=== PATIENT | female | born 1965 | race Caucasian/White ===

== ENCOUNTER → 2016-11-19 | Outpatient (CLI) | payer OTHER ==
[~2016-11-19] MED LIST: ATARAX50 MG PO; CIPRO500 MG PO; IBU-8800 MG PO; K-DUR 20MEQ20 MEQ PO; LASIX20 MG PO; NKHM; PERCOCET 325 MG1 TA7 PO; PREDNICOT20 MG PO; TAGAMET300 MG PO; XANAX2 MG PO
--- NOTE | ~2016-11-19 | WRIGHTHP ---
[place], [place] PATIENT HISTORY AND PHYSICAL EXAM NAME: GEMINI SALGADO [facility] #: [id number] UNIT #: [id number] ROOM: DOCTOR: HARI PAZ M.D. BIRTHDATE: [birth year] DOS: 11/19/2016 This is a new wound care note. CHIEF COMPLAINT: Chronic ulcer of the right lower extremity. HISTORY OF PRESENT ILLNESS: This is a 51-year-old female who was referred to the Wound Clinic by her PCP for a chronic ulceration of the right lower extremity. She has had this wound present for at least 20 years according to the patient, it does seem at times that it gets smaller. She has been to see a physician out in [place] about this wound at one point several years ago. She has had a wound that was treated on the anterior leg as well with the Unna boot that did improve and respond to treatment. At one point, she said she used Silvadene on it and Silvadene seemed to improve it and get it smaller, but it never did quite heal all the way. She has chronic leg edema and torturous veins according to her up even near the thighs. She has a lot of irritation and pruritus around the wound itself. PAST MEDICAL HISTORY: Significant for anxiety, depression, cataracts, and hypertension. She is not diabetic. PAST SURGICAL HISTORY: She is status post lumpectomy in 1995, which was benign and tonsillectomy. FAMILY HISTORY: Significant for diabetes in her mother, hypertension in her mother, heart disease in her father. SOCIAL HISTORY: She is a current everyday smoker 1 pack per day. She is . She does not use drugs and rarely drinks alcohol. ALLERGIES: No known drug allergies. CURRENT MEDICATIONS: She is on lisinopril, hydrochlorothiazide combination 10/12.5 daily, adult low dose aspirin 81 daily, Seroquel 100 daily, Lexapro 20 daily, Keflex 500 p.o. b.i.d. for 10 days. REVIEW OF SYSTEMS: She does not have any fevers or chills. No nausea or vomiting. She does have some clear drainage coming from the wound. There is a lot of inflammation and the periwound itches a lot. She does feel like she has to scratch it quite a bit. She denies chest pains or shortness of breath or any change in her appetite or weight loss. She does have chronic cough from smoking. PHYSICAL EXAMINATION: VITAL SIGNS: Her vitals are afebrile, pulse is 64, respirations 18, and blood pressure is 110/78. GENERAL: This is a pleasant female who is obese, in no acute distress. NECK: There is no JVD. LUNGS: Clear. CARDIOVASCULAR: S1, S2 regular rate and rhythm. [place], [place] PATIENT HISTORY AND PHYSICAL EXAM NAME: [facility]: [id number] UNIT #: [id number] ROOM: DOCTOR: HARI PAZ M.D. BIRTHDATE: [birth year] ABDOMEN: Obese, soft and nontender. EXTREMITIES: She has edema bilaterally. There is no calf tenderness. Multiple varicosities are noted. She has hemosiderin staining, onychomycosis. Her toes are warm. Her dorsalis pedis pulse is palpable; it is difficult to get a posterior tibial pulse due to the edema. She has a capillary refill less than 3 seconds. The RASHAAD was done on the left leg was 1.43 and on the right was 1.75, but the posterior tibial was noncompressible. She has a wound that is located above the medial malleolus that is measuring 2.4 x 3.5 x 0.2 in depth. There is really no necrotic tissue present. There is periwound erythema and inflammation around it. I would say about 1 inch around the entire wound. There is no active cellulitis that I could see. We discussed with the patient about debridement and doing a biopsy as the wound has been present for so long. She did agree to it. The 1 o'clock area of the wound was infiltrated with 2 mL of 1% lidocaine and a punch biopsy was obtained of the area. There was moderate amount of bleeding that was controlled with pressure, and after that the wound was debrided selectively to remove fibrin and slough and there was no bleeding, there was a post-debridement culture obtained as well. The post-debridement measurements are as follows 2.5 x 4 x 0.3 in depth. Instruments used were punch biopsy forceps and scissors. Cetacaine spray was also used for topical anesthesia to the base of the wound. ASSESSMENT AND PLAN: Likely a venous leg ulcer, which has been chronic and nonhealing for several years now. She had a similar wound that responded to compression therapy in the past. Her RASHAAD was difficult to obtain of the right side noncompressible, so we will go ahead and send her for arterial Dopplers, once it is scheduled we will also get venous Dopplers as well. Punch biopsy was obtained today. We will use Aquacel silver to the base of the wound and 4 x 4s and Kerlix and have her use Tubigrip for compression for now and follow up early next week and hopefully will be able to use compression on her in the near future. I will go through her blood work to see if she has had any recent labs. She says she is not diabetic. If she has not had lab work done, we will consider getting that next time she is here. She also has some dermatitis around the wound, so triamcinolone cream was prescribed and a culture was also obtained today. Follow up early next week. [place], [place] PATIENT HISTORY AND PHYSICAL EXAM NAME: [facility] [id number] UNIT #: [id number] ROOM: DOCTOR: HARI PAZ M.D. BIRTHDATE: [birth year] HARI PAZ MD CM:HISPHYS:PATIENT HISTORY AND PHYSICAL EXAMINATION [id number] HARI PAZ M.D. 11/19/16 1208 interface
== END ==
LOC: WOUNDCARE 02:42
DX: I87.2 Venous insufficiency (chronic) (peripheral) (principal); L97.812 Non-pressure chronic ulcer of other part of right lower leg with fat layer exposed; F41.9 Anxiety disorder, unspecified; F32.9 Major depressive disorder, single episode, unspecified; I10 Essential (primary) hypertension; B35.1 Tinea unguium; F17.210 Nicotine dependence, cigarettes, uncomplicated

== ENCOUNTER → 2016-12-03 | Outpatient (CLI) | payer OTHER | END | disposition home or self-care (01) | LOC: US 11-24 14:00 | DX: S81.001A Unspecified open wound, right knee, initial encounter (principal); L97.912 Non-pressure chronic ulcer of unspecified part of right lower leg with fat layer exposed; I87.2 Venous insufficiency (chronic) (peripheral); I10 Essential (primary) hypertension; M71.22 Synovial cyst of popliteal space [Baker], left knee; M71.21 Synovial cyst of popliteal space [Baker], right knee; X58.XXXA Exposure to other specified factors, initial encounter; Y93.89 Activity, other specified; Y92.89 Other specified places as the place of occurrence of the external cause; Y99.8 Other external cause status ==

== ENCOUNTER → 2016-12-09 | Outpatient (CLI) | payer OTHER ==
--- NOTE | ~2016-12-09 | PR ---
[place], [place] PROGRESS NOTE NAME: GEMINI SALGADO UNIT #: [id number] ROOM: DOCTOR: HARI PAZ M.D. BIRTHDATE: [birth year] DOS: 12/09/2016 The patient comes in for her routine followup wound care visit. CHIEF COMPLAINT: Chronic leg ulcer. HISTORY OF PRESENT ILLNESS: The location is the right lower extremity. The duration has been present for years according to the patient, it is associated with venous stasis disease and edema. She is not diabetic. Last week, she had her venous and arterial Dopplers done. The reports are good. There was no acute DVT and she has good arterial flow with no significant peripheral vascular disease. She offers no specific complaints. She says there is still a fair amount of drainage with the wound and at times, feels a little bit itchy, but there are no fevers, chills, or pain. OBJECTIVE: VITAL SIGNS: Stable. Temperature is 98.1, pulse of 84, respirations 18, blood pressure is 124/80. EXTREMITIES: The wound is measuring 1.9 x 2.2 x 0.2. There is minimal fibrin, slough present in the base of the wound. There is minimal amount of maceration noted a little bit on just the edges. There seems to have been a fair amount of epithelialization since when she first came. The periwound has no active cellulitis present. A debridement was done. The tissue removed was fibrin, slough, and subcutaneous tissue. There was minimal amount of bleeding that was controlled with pressure. A curette was used. Cetacaine spray was used for topical anesthesia. Timeout was conducted prior to the start of the procedure. The patient tolerated the procedure well. ASSESSMENT AND PLAN: Venous stasis ulceration, full thickness. We will use a compression therapy Unna boot for now and have her come back in 2 days for nursing visit to change the dressing and see how she does with the boot. In the meantime, we will continue with Aquacel silver and for now. Follow up in Wound Clinic in one week. [place], [place] PROGRESS NOTE NAME: GEMINI SALGADO UNIT #: [id number] ROOM: DOCTOR: HARI PAZ M.D. BIRTHDATE: [birth year] HARI PAZ MD CM:GUY [phone] HARI PAZ M.D. 12/10/16 0210 interface
== END ==
LOC: WOUNDCARE 03:00
DX: I87.2 Venous insufficiency (chronic) (peripheral) (principal); L97.812 Non-pressure chronic ulcer of other part of right lower leg with fat layer exposed

== ENCOUNTER → 2016-12-11 | Outpatient (CLI) | payer OTHER | LOC: WOUNDCARE 02:59 | DX: I87.2 Venous insufficiency (chronic) (peripheral) (principal); L97.812 Non-pressure chronic ulcer of other part of right lower leg with fat layer exposed ==

== ENCOUNTER → 2016-12-16 | Outpatient (CLI) | payer OTHER ==
--- NOTE | ~2016-12-16 | PR ---
[place], [place] PROGRESS NOTE NAME: [facility] [id number] UNIT #: [id number] ROOM: DOCTOR: HARI PAZ M.D. BIRTHDATE: [birth year] DOS: 12/16/2016 This is a wound care followup note. CHIEF COMPLAINT: Chronic leg ulcer. HISTORY OF PRESENT ILLNESS: The location of the wound is the right lower extremity, medial aspect, medial tibial area. It is associated with venous stasis disease and edema. She is not diabetic. She has been on compression therapy, tolerating her Unna boot without any particular complaints. No fevers or chills. No pain. PHYSICAL EXAMINATION: VITAL SIGNS: She is afebrile, pulse is 82, respirations 18, blood pressure is 122/80. WOUND EXAMINATION: The wound is measuring 1 cm x 1.3 x 0.3 in depth at the deepest depth. It definitely seems improved. There is minimal fibrin and slough present in the base of the wound and some dried hyperkeratosis around the periwound area. Tissue removed was fibrin, slough and subcutaneous tissue. There was minimal bleeding that was controlled with pressure. Post-debridement measurements are unchanged. A curette was used as well as forceps and scissors. ASSESSMENT AND PLAN: Venous stasis ulceration, full thickness. We will continue with Aquacel Ag and compression therapy and have her follow back up in 1 week. HARI PAZ MD CM:PNTRANS [phone] HARI PAZ M.D. 12/17/16 0349 interface
== END ==
LOC: WOUNDCARE 01:16
DX: I87.2 Venous insufficiency (chronic) (peripheral) (principal); L97.812 Non-pressure chronic ulcer of other part of right lower leg with fat layer exposed

== ENCOUNTER → 2016-12-23 | Outpatient (CLI) | payer OTHER ==
--- NOTE | ~2016-12-23 | PR ---
[place], [place] PROGRESS NOTE NAME: GEMINI SALGADO [facility] #: [id number] UNIT #: [id number] ROOM: DOCTOR: JACKSON Huntley,HARI BIRTHDATE: [birth year] DOS: 12/23/2016 CHIEF COMPLAINT: Chronic ulcer of the leg. HISTORY OF PRESENT ILLNESS: The location of the wound is the right lower extremity medial tibial area. It is associated with venous stasis disease. It is chronic for years and 20 years according to the patient and chronic edema. She is not diabetic. She has been tolerating the compression therapy for several weeks now without any particular issues previously. Today, she comes in and reports that the Unna boot did slide down, and felt like it was not as tight as it had been before, and she had to take it off on Wednesday. She has not had compression for several days. Otherwise, no pain. She does complain of a lot of pruritus within the wound bed. No fevers or chills are noted. She thinks the wound is looking improved as well. Overall, it does still drain some and sometimes the dressing gets stuck in the base of the wound. OBJECTIVE: VITAL SIGNS: Stable. Temperature is 98.4, pulse is 60, respirations 18, blood pressure is 102/60. WOUND EXAM: The wound looks good, it looks fairly clean. It is measuring 1.1 x 2 x 0.2 in depth. There is definitely some epithelialization even from the last picture that is recorded in the computer. A debridement was done today. The tissue removed was nonviable fibrin and slough only biofilm. There was minimal bleeding. Post-debridement measurements are unchanged. The patient tolerated the debridement well. A curette was utilized. Cetacaine spray was used for topical anesthesia. ASSESSMENT AND PLAN: Chronic venous stasis ulcer full thickness. We will continue with compression therapy. We will continue with the Unna boot and hopefully they will stay on for the week and go to a collagen dressing for now. Follow up Wound Care in one week. HARI PAZ MD CM:GUY [phone] HARI PAZ M.D. 12/24/16 0450 interface
== END ==
LOC: WOUNDCARE 01:11
DX: I87.2 Venous insufficiency (chronic) (peripheral) (principal); L97.812 Non-pressure chronic ulcer of other part of right lower leg with fat layer exposed

== ENCOUNTER → 2017-01-01 | Outpatient (CLI) | payer OTHER ==
--- NOTE | ~2017-01-01 | PR ---
[place], [place] PROGRESS NOTE NAME: GEMINI GONGORA [facility] #: [id number] UNIT #: [id number] ROOM: DOCTOR: JACKSON HuntleyHARI BIRTHDATE: [birth year] DOS: 01/01/2017 WOUND CARE PROGRESS NOTE Ms. Gongora has been coming to the clinic now for 6 weeks with a venous ulceration that is full thickness on her right lower extremity. She has been tolerating compression therapy. She did miss her appointment this week and was unable to come. She took off her compression wrap on her own. She did complain that she had some increased redness she thought enzymes and some discomfort and there was some bleeding noted with the wound and some itching around the periwound area. She reports also that at times she has noticed since the compression wraps have been off, that she may have accidentally kicked the wound, but she is not quite sure. Sometimes she will feel like she needs to scratch it and does try and scratch the wound with other leg without thinking. So this is something that she notes. We did change her to a collagen just last week too. So that is the first time that she has had that particular dressing. She is normally using an Unna boot. She comes in today without any other specific complaints. It is not draining. There are no fevers or chills, but it does seem more tender than usual and slightly more red. PHYSICAL EXAMINATION: She is afebrile. Her vitals are stable. Temperature is 97.8, pulse of 68, respirations 18, blood pressure is 110/68. The wound measurements are much improved at 0.7 x 0.2 x 0.1. There is definitely within that margin a lot of epithelialization and no visible necrotic tissue. Debridement was not done today. There is some periwound erythema, which seems chronic, but does not appear to be acutely infected. ASSESSMENT AND PLAN: Chronic venous stasis ulceration. It is definitely responding to compression therapy. There may have been some irritation from the collagen dressing. We will go ahead and stop that one and go back to the Aquacel silver, which she had been on before. We will use this instead. We will add doxycycline for anti-inflammatory purposes due to her complaints of increased discomfort, but there does not appear to be any sign of cellulitis on examination. We will use hydrocortisone cream as well to the periwound underneath the wrap. We will use a 3-layer compression wrap today. This will be the first time we have used this wrap because we do not have Unna boots available. The patient is to follow up in one week. [place], [place] PROGRESS NOTE NAME: GEMINI GONGORA UNIT #: [id number] ROOM: DOCTOR: HARI PAZ M.D. BIRTHDATE: [birth year] HARI PAZ MD CM:GUY [phone] HARI PAZ M.D. 01/02/17441 interface
--- NOTE | ~2017-01-01 | PR ---
[place], [place] PROGRESS NOTE NAME: GEMINI SALGADO UNIT #: [id number] ROOM: DOCTOR: HARI PAZ M.D. BIRTHDATE: [birth year] DOS: 01/01/2017 ADDENDUM A 3-layer compression wrap was applied for the patient, and the patient tolerated it and was discharged in a stable condition. HARI PAZ MD CM:GUY [phone] HARI PAZ M.D. 01/15/17 0328 interface
== END | disposition home or self-care (01) ==
LOC: WOUNDCARE 07:35
DX: I87.2 Venous insufficiency (chronic) (peripheral) (principal); L97.812 Non-pressure chronic ulcer of other part of right lower leg with fat layer exposed; I48.91 Unspecified atrial fibrillation

== ENCOUNTER → 2017-01-08 | Outpatient (CLI) | payer OTHER ==
--- NOTE | ~2017-01-08 | PR ---
[place], [place] PROGRESS NOTE NAME: GEMINI SALGADO [facility] #: [id number] UNIT #: [id number] ROOM: DOCTOR: JACKSON HuntleyHARI BIRTHDATE: [birth year] DOS: 01/08/2017 CHIEF COMPLAINT: Chronic ulcer of the right lower extremity. HISTORY OF PRESENT ILLNESS: The wound is chronic, has been present for at least 20 years according to the patient. She has been coming to the Wound Clinic for 7 weeks now. The wound had been steadily improving. Last week measurements were much improved with the compression. She had a collagen dressing on as a trial, but she had complained of some discomfort around the wound and pruritus. We had changed the collagen back to Aquacel Silver last week, feeling that maybe she was sensitive to the collagen. In any case, we also were out of the Unna boot, which she had been using, and we used a 3-layer wrap. However, she states that she had felt that there was a mosquito underneath her wrap and that was causing a funny sensation for her, so she took the wrap off yesterday. Since yesterday, she was up and about walking quite a bit during the day and today as well up and about. Also, she did not take her blood pressure medication, which has a diuretic in it as her blood pressure has been running on the lower side lately. She has no fevers or chills. The pain around the wound is much improved, although she still has a fair amount of pruritus around the wound as before. No fevers or chills are noted. No nausea or vomiting has been described today. She is taking the doxycycline that was prescribed empirically last week for anti-inflammatory purposes. PHYSICAL EXAMINATION: She is afebrile, pulse is 64, respirations 18, blood pressure is 115/68. The wound is measuring bigger at 1.8 x 2 x 0.2 in depth. There is really minimal fibrin slough in the base of the wound. The periwound is fibrotic and thickened. It is not tender. It is chronically erythematous. The erythema seems stable and improved, and she has no evidence of cellulitis at this point. A debridement was done. The tissue removed was fibrin, slough, and subcutaneous tissue. There was minimal bleeding that was controlled with pressure. Post-debridement measurements are unchanged. A post-debridement swab culture was obtained of fluid expressed from the wound base for culture. She does have edema noted, which seems much more pronounced than before and much more in the ankle and foot area. She has multiple varicosities as well noted. SOCIAL HISTORY: She is a smoker and does not drink. ASSESSMENT AND PLAN: Chronic venous ulceration of the right lower extremity. Unfortunately, we did not have the Unna boot in our clinic last week, so we used a 3-layer wrap. I think she does better with the Unna boot as far as compression goes. We had also changed her back to Aquacel silver instead of collagen feeling that that might have been causing some of the irritation that she has; however, I think that the wound looked a lot better with the collagen in placed instead; so I would like to go back to the collagen. I do not think there is an active infection. We are going to continue with the doxycycline for anti-inflammatory purposes for now and a steroid cream on the periwound and have her come back next week on Wednesday for wound visit in the afternoon. I would like to see her sooner for an evaluation. She also may benefit from venous ablation so we may want to consider sending her for referral for venous ablation as well and if we have problems with wound healing in the next few weeks, we may [place], [place] PROGRESS NOTE NAME: GEMINI SALGADO UNIT #: [id number] ROOM: DOCTOR: HARI PAZ M.D. BIRTHDATE: [birth year] want to consider her a candidate for biologics for wound closure, but in the meantime, I think she does well with compression therapy if it stays on and is able to keep it on without an issue, I think the wound will improve with that as well as going back to the collagen. Followup early next week. HARI PAZ MD CM:PNTRANS [phone] HARI PAZ M.D. 01/09/17 0646 interface
== END ==
LOC: WOUNDCARE 02:44
DX: I87.2 Venous insufficiency (chronic) (peripheral) (principal); L97.812 Non-pressure chronic ulcer of other part of right lower leg with fat layer exposed; I48.91 Unspecified atrial fibrillation; F17.200 Nicotine dependence, unspecified, uncomplicated

== ENCOUNTER → 2017-01-12 | Outpatient (CLI) | payer OTHER ==
--- NOTE | ~2017-01-12 | PR ---
[place], [place] PROGRESS NOTE NAME: GEMINI SALGADO [facility] #: [id number] UNIT #: [id number] ROOM: DOCTOR: HARI PAZ M.D. BIRTHDATE: [birth year] DOS: 01/12/2017 CHIEF COMPLAINT: Chronic ulcer of the right lower extremity. Last week when she came in, it felt that her wound was definitely bigger in size. She had some trouble with the 3-layer compression wrap. There was some swelling with the leg. She took off her wrap and it was felt that the wound margins had looked increased secondary to the uncontrolled edema. The patient was started empirically on doxycycline. Culture did gross to some light Staph aureus. She says she is tolerating the antibiotic without any complaints. PHYSICAL EXAMINATION: Today, she is afebrile, pulse of 66, respirations 16, blood pressure is 108/64. The wound margins are improving at 1.6 x 1.8 x 0.2. There was definitely some epithelialization that appears to be new. The erythema around it has calmed down a lot. It is not tender. There is somewhat fibrotic wound edge. Overall, the ulcer definitely looks better today. A debridement was done today. The tissue removed was fibrin, slough, and subcutaneous tissue. There was minimal bleeding that was controlled with pressure. Cetacaine spray was used for topical anesthesia. A curette was utilized. Post-debridement measurements are unchanged. Minimal bleeding was controlled with pressure. The patient tolerated the debridement well. ASSESSMENT AND PLAN: Venous stasis ulceration, which is improving with compression and a collagen dressing. We did discuss a possible referral for venous ablation at some point; however, since the wound seems to be doing well with wound care and compression therapy, we will continue with this, but she will likely need to have some venous consultation at some point as well. I do not think she needs a biologic at this point since the wound margins are improving with a collagen dressing. HARI PAZ MD CM:VINCENTTRANS [phone] HARI PAZ M.D. 01/13/17 0309 interface
== END ==
LOC: WOUNDCARE 13:39
DX: I87.2 Venous insufficiency (chronic) (peripheral) (principal); L97.812 Non-pressure chronic ulcer of other part of right lower leg with fat layer exposed; I48.91 Unspecified atrial fibrillation

== ENCOUNTER → 2017-01-18 | Outpatient (CLI) | payer OTHER ==
--- NOTE | ~2017-01-18 | PR ---
[place], [place] PROGRESS NOTE NAME: GEMINI SALGADO [facility] #: [id number] UNIT #: [id number] ROOM: DOCTOR: JACKSON Huntley,HARI BIRTHDATE: [birth year] DOS: 01/18/2017 This is a routine followup visit. The patient comes in for a chronic ulcer of the right lower extremity. HISTORY OF PRESENT ILLNESS: This is a venous leg ulcer that she has had present for years. She has been coming to the wound clinic now for approximately 8 weeks now. The wound has gradually been getting smaller with compression therapy. She definitely tolerates a Unna boot much better than the three layer wrap for some reason. She comes in today without any specific complaints. She was able to keep the Unna boot on for the whole week. It did start to unravel just a little bit; however, but overall no specific complaints regarding the compression or the wound. OBJECTIVE: VITAL SIGNS: Stable. Temperature 99.1, pulse of 74, respirations 16, blood pressure is 130/80. The wound is looking really good at 1.5 x 1 x 0.1. There is no surrounding erythema or purulence or tenderness. The edges are fibrotic, slight maceration is noted. There has been quite a bit of epithelialization since the last time I saw her wound. Debridement was done. The tissue removed was fibrin, slough and subcutaneous tissue. There was a moderate amount of bleeding that was controlled with pressure. Post-debridement measurements are unchanged except for the depth of 0.2. Bleeding was controlled with pressure, 100% of the wound was debrided. ASSESSMENT AND PLAN: Chronic venous stasis ulceration, responding well to compression therapy. Since the wound is improving with this present therapy, we will continue with collagen and compression. If we stall again, we may want to consider an EpiFix graft. Follow up in one week. HARI PAZ MD CM:PNTRANS [phone] HARI PAZ M.D. 01/19/17 0501 interface
== END ==
LOC: WOUNDCARE 02:13
DX: I87.2 Venous insufficiency (chronic) (peripheral) (principal); L97.812 Non-pressure chronic ulcer of other part of right lower leg with fat layer exposed

== ENCOUNTER → 2017-01-27 | Outpatient (CLI) | payer OTHER ==
--- NOTE | ~2017-01-27 | PR ---
[place], [place] PROGRESS NOTE NAME: GEMINI SALGADO [facility] #: [id number] UNIT #: [id number] ROOM: DOCTOR: JACKSON HuntleyHARI BIRTHDATE: [birth year] DOS: 01/27/2017 CHIEF COMPLAINT: Followup of right leg ulcer as well as new wounds on the left leg. HISTORY OF PRESENT ILLNESS: This is a patient who has a venous leg ulcer of her right lower extremity for years now. She has been coming to the Wound Clinic for 9 weeks. The wound had been steadily improving with compression therapy and collagen dressing. She was responding quite well to that. However, she states that since the Unna boot was put on, she says it only stays up for about 3-4 days and then it starts to loosen up and then comes down, so it does not stand up or stay in place for the whole entire week. She also states that she noticed a lot of excoriation yesterday for the past 2 days after being out in the yard. She thought maybe she had been bitten by fire ants, but she notices a lot of excoriations on her left leg, there are two open wounds that are small, but she said she is quite concerned about them because it is slightly tender and also reminds how her initial wound started on her right leg in scenario from that, so she would like us to look at that as well. Actually, she does not have any fever. She is not complaining of any nausea or vomiting or feeling ill in anyway. Her temperature is 99.1, pulse of 76, respirations 18, blood pressure is 114/80. The wound on the right lower extremity is measuring 1.1 in length x 2 cm in width and 0.2 in depth. It does look bigger than last week, but fairly clean. There is no overt necrotic tissue present. The summer-wound inflammation is stable and is not any worse. There is no purulence and it is not acutely tender. A debridement was done of this wound was a selective debridement only. The tissue removed a fibrin and slough with biofilm. There was minimal bleeding that was controlled with pressure. Post-debridement measurements are unchanged. Her edema is still present and multiple varicosities are noted as before. She has two other wounds located on the left leg that are measuring 0.3 x 0.4 x 0.1 and the other one is measuring 0.4 x 0.4 x 0.1, but actually after cleansed with a sterile Q-tip, it looks like the depth is a little bit deeper at 0.2 and they are very, very small and she has multiple excoriations around the left leg and what appears to be a folliculitis type of rash and along those two open ulcers, there is some surrounding erythema and it is mildly tender to touch, but there is no overt cellulitis on the rest of the leg just localized around the wounds. Also, I also would like to mention as post-debridement culture taken of the right lower extremity wound. ASSESSMENT AND PLAN: Venous leg ulcer, which appears bigger, I believe this is secondary to the compression being ineffective, if it was loosening after several days, so we would like her to continue with the collagen and Unna boot and have her follow back up sooner on Wednesday for wound care visit, but she may need to have the wraps changed after 4 days of use if they are not holding for 7 days total. In addition, for the second layer, we can try using a Coban on top instead of Kerlix to see if this will help maintains some of the integrity of the wrap. For the left leg, she has excoriations, I believe she may have been bitten by an insect, they do look that it could be from that. There is some folliculitis also noted around with several different excoriations. I would like her to use Bactroban for now and have her just change the dressing every other day and use the Tubigrip for edema control. She has chronic edema of the [place], [place] PROGRESS NOTE NAME: GEMINI SALGADO UNIT #: [id number] ROOM: DOCTOR: HARI PAZ M.D. BIRTHDATE: [birth year] left leg as well. She will need to have compression stockings. She does not have any now. We will go ahead and order a pair for her. I think she should do well with the 2-layer stocking, so she has those, so that they will hopefully be available as soon as possible. In addition, I would like to mention that since she has not had blood work in a while, I would like to check complete metabolic panel, hemoglobin A1c and a CBC for her and also, I would like her to be see if we can consider her for EpiFix biologic grafting for her venous leg ulcer as she has had the standard wound care and compression therapy and we still have open wound that has stalled and actually gotten bigger, so I would like to do this as well. Follow up early next week. I did put her on Bactroban and that was called in to [facility] as well as [facility] for the moderate erythema around the ulcers that were at the new ulcers of the left leg. This was 500 t.i.d. for 10 days was called in. HARI PAZ MD CM:GUY [id number] HARI PAZ M.D. 01/28/17 1109 interface
[2017-01-27 11:57] LABS: BASO % 0.6 % (0.0-1.0); EOS # 0.2 10*3/uL (0.0-0.4); EOS % 3.3 % (1.0-4.0); HEMATOCRIT 43.9 % (37.0-47.0); HEMOGLOBIN 14.5 g/dl (12.0-16.0); LYMPH # 2.2 10*3/uL (1.3-4.4); LYMPH % 32.5 % (27.0-41.0); MEAN CELL VOLUME 95.2 fl (81.0-99.0); MEAN CORPUSCULAR HGB 31.5 pg (27.0-31.0); MEAN PLATELET VOLUME 9.8 fl (9.6-12.3); MONO # 0.6 10*3/uL (0.1-1.0); MONO % 8.6 % (3.0-9.0); NEUT # 3.7 10*3/uL (2.3-7.9); NEUT % 54.7 % (47.0-73.0); PLATELET COUNT AUTOMATED 248 10*3/uL (130-400); RED BLOOD COUNT 4.61 10*6/uL (4.10-5.10); RED CELL DISTRI WIDTH 13.5 % (0-14.5); WHITE BLOOD COUNT 6.7 10*3/uL (4.8-10.8)
[2017-01-27 12:21] LABS: ALBUMIN 3.9 gm/dl (3.1-4.5); BILIRUBIN, TOTAL 0.5 mg/dl (0.2-1.0); POTASSIUM 4.9 mmol/L (3.5-5.1); TOTAL PROTEIN 8.5 gm/dL (6.4-8.2)
== END | disposition home or self-care (01) ==
LOC: LAB 02:55 → WOUNDCARE 02:55
DX: S81.802A Unspecified open wound, left lower leg, initial encounter (principal); L97.912 Non-pressure chronic ulcer of unspecified part of right lower leg with fat layer exposed; I87.2 Venous insufficiency (chronic) (peripheral); B96.89 Other specified bacterial agents as the cause of diseases classified elsewhere; X58.XXXA Exposure to other specified factors, initial encounter; Y93.89 Activity, other specified; Y92.89 Other specified places as the place of occurrence of the external cause; Y99.8 Other external cause status

== ENCOUNTER → 2017-02-01 | Outpatient (CLI) | payer OTHER ==
--- NOTE | ~2017-02-01 | PR ---
[place], [place] PROGRESS NOTE NAME: GEMINI SALGADO [facility] #: [id number] UNIT #: [id number] ROOM: DOCTOR: JACKSON HuntleyHARI BIRTHDATE: [birth year] DOS: 02/01/2017 WOUND CARE FOLLOWUP NOTE CHIEF COMPLAINT: Follow up of left leg ulcer. HISTORY OF PRESENT ILLNESS: This is a patient with a history of a venous leg ulcer that she has had for several years now that she has been coming to the Wound Clinic for 10 weeks now with steadily improving wound. Last week; however, the margins were bigger on the wound as she was unable to keep the compression stocking on consistently and it loosened up and she had to take it off. There were also new wounds on her left anterior leg, which we had prescribed Bactroban. Bactroban was also used for her right leg. The patient did get her 2-layer compression stocking system, which she really, really liked. So, she said it felt so good on her left leg, which she was using that she took the Unna boot off and decided to use that on her right leg instead and she says this really seemed to have made a difference in the wound. The wound margins look much smaller and she is quite pleased with the results. She is tolerating the Keflex and using Bactroban ointment as prescribed. We had prescribed Keflex for the left lower extremity wounds that did seem to have a mild localized cellulitis around them and that seemed to have completely resolved. OBJECTIVE: VITAL SIGNS: Stable. Temperature is 97.8, pulse of 80, respirations 18, blood pressure is 126/80. WOUND EXAMINATION: Her right lower extremity wound is measuring a lot smaller at 0.7 x 1.1 x 0.2. There is definitely a large amount of epithelial tissue. The periwound inflammation appears much controlled. There is no overt maceration. Edema is stable. Selective debridement was done of this ulcer. Instrument used was a curette. There was no bleeding. Post-debridement measurements are unchanged. The patient tolerated the debridement well. Cetacaine spray was used for topical anesthesia. The left lower leg wounds are healed at this point and the edema is well controlled. She did have some labs done, which did show a creatinine of 1.35 and hemoglobin A1c of 6, glucose of 126. Also, her culture was no organisms, no white cells and was a Staph aureus sensitive to oxacillin, but resistant to penicillin and resistant to clindamycin. ASSESSMENT AND PLAN: Chronic venous leg ulceration. This seems to be responding to collagen and Bactroban. We will continue with this for now and we did ask instead of the Unna boot or a 3-layer compression wrap, we will go ahead and have her use her 2-layer compression stockings, which seemed to really be helping her and so, we will go ahead and use that. She would like to use a waterproof bandage, so she can take a shower, so we will use a foam as well. Followup in 1 week. [place], [place] PROGRESS NOTE NAME: GEMINI SALGADO UNIT #: [id number] ROOM: DOCTOR: HARI PAZ M.D. BIRTHDATE: [birth year] HARI PAZ MD CM:PNTRANS [id number] HARI PAZ M.D. 02/01/17 1404 interface
== END ==
LOC: WOUNDCARE 01:57
DX: I87.2 Venous insufficiency (chronic) (peripheral) (principal); L97.822 Non-pressure chronic ulcer of other part of left lower leg with fat layer exposed; L97.812 Non-pressure chronic ulcer of other part of right lower leg with fat layer exposed

== ENCOUNTER → 2017-04-06 | Outpatient (CLI) | payer OTHER ==
--- NOTE | ~2017-04-06 | PR ---
[place], [place] PROGRESS NOTE NAME: GEMINI SALGADO [facility] #: [id number] UNIT #: [id number] ROOM: DOCTOR: JACKSON HuntleyHARI BIRTHDATE: [birth year] DOS: 04/06/2017 WOUND CARE PROGRESS NOTE CHIEF COMPLAINT: Chronic and recurrent leg ulceration. HISTORY OF PRESENT ILLNESS: This is a 51-year-old female with a history of a chronic venous leg ulcer of the right lower extremity. She is known to the Wound Clinic for her past admission here and treatment where she was undergoing treatment for this right leg ulceration; however, was lost to follow up. The patient was noncompliant with followup and quit of her own accord. The wound had been steadily improving with compression therapy; however, the patient states that she was unable to come any more, too many things are going on in her life, and she just did not have the time to really come here and follow through, so she has not been seen for several months now. She comes in stating that the wound really never did heal. She thought it is looking pretty good. She has been using a foam on it, but ran out a foam dressing. It does have an odor to it that she noticed and does sting. She has not been able to use her compression stockings for a while. She had 2 new pair that she really loved; there were two layers silk stocking system; however, it was unfortunately difficult to get on and apparently, they have large tears now, so really she has not been able to use them, so she has not had any effect of compression for a while now. She has had no fevers or chills. No change in her medical history. SOCIAL HISTORY: She is a smoker and continues to smoke. PHYSICAL EXAMINATION: VITAL SIGNS: Temperature is 98.4, pulse is 62, respirations are 18, blood pressure is 90/50. RASHAAD was not done today, but had been done in the past where her RASHAAD was 1.43 on the left, 1.75 on the right. She does have the same wound essentially, does not even appear much different at all at 2.4 x 1.7 x 0.2. There is a fibrin slough present at the base of the wound. There is a lot of irritation around the periwound with a few scattered open areas around the periwound as well as it looks to me more like a dermatitis rather than infectious in nature. A debridement was done today. The tissue removed was fibrin slough and subcutaneous tissue. There was minimal bleeding that was controlled with pressure. The instrument utilized was a curette. Post-debridement measurements are as follows; 2.6 x 2.5 x 0.2. The patient tolerated the debridement well. ASSESSMENT AND PLAN: Chronic venous stasis ulceration, which had improved in the past with compression therapy and wound care; however, the patient was lost to follow up and quit of her own accord, so a culture was taken today post-debridement due to the patient stating that she has had smoked the odor coming from the wound, although presently I do not appreciate that. We will go ahead and go with the Maxorb silver for now and Unna boot. I did put her on empiric Keflex 500 p.o. t.i.d. The patient is not allergic to any antibiotics and we will see how she responds to this and check the cultures. An Unna boot was placed today. The patient will have come back in 2 days for wrap change. The patient did have arterial studies done back in November where it did not show [place], [place] PROGRESS NOTE NAME: GEMINI SALGADO UNIT #: [id number] ROOM: DOCTOR: HARI PAZ M.D. BIRTHDATE: [birth year] any significant peripheral arterial disease. The patient also did have a biopsy done, which was negative for malignancy when she was last here. Also, the patient may be a candidate for possible venous intervention. She will actually need to get new compression stockings. So, I did ask her to call the company that provided the stockings and told them that they have rips in them and if there is a way to get a new pair. Otherwise, she may be a candidate for this CircAid wrap system also is a consideration. So, I will talk to her about that, although maybe difficult to have insurance pay for it since she already got these other stockings, but follow up is in 2 days for wrap change and then wound care visit in one week. I would also like to mention that perhaps the patient may be considered treatment with pentoxifylline. She is on aspirin. I would like to speak with the PCP regarding their ideas about this first. We will consider that and talk to the PCP before any medications are ordered. I will discuss with the patient as well. HARI PAZ MD CM:GUY [id number] HARI PAZ M.D. 04/12/17 1619 interface
== END | disposition home or self-care (01) ==
LOC: WOUNDCARE 08:04
DX: I87.2 Venous insufficiency (chronic) (peripheral) (principal); L97.812 Non-pressure chronic ulcer of other part of right lower leg with fat layer exposed; F17.210 Nicotine dependence, cigarettes, uncomplicated

== ENCOUNTER → 2017-04-08 | Outpatient (CLI) | payer OTHER | END | disposition home or self-care (01) | LOC: WOUNDCARE 01:20 | DX: I87.2 Venous insufficiency (chronic) (peripheral) (principal); L97.812 Non-pressure chronic ulcer of other part of right lower leg with fat layer exposed ==

== ENCOUNTER → 2017-04-15 | Outpatient (CLI) | payer OTHER ==
--- NOTE | ~2017-04-15 | PR ---
[place], [place] PROGRESS NOTE NAME: GEMINI SALGADO [facility] #: [id number] UNIT #: [id number] ROOM: DOCTOR: JACKSON HuntleyHARI BIRTHDATE: [birth year] DOS: 04/15/2017 CHIEF COMPLAINT: Chronic and recurrent leg ulceration. HISTORY OF PRESENT ILLNESS: A 51-year-old middle-aged female with a history of chronic venous ulceration of the right lower extremity, who we had seen in the past. Her wound is responding well to Unna boots and compression; however, she became noncompliant and was quite overgrown accord. She just recently came back to us last week and the wound essentially was the same as it had been before. The area was debrided. A culture was sent. The patient was started on Unna boot as well as Maxorb Ag. She did keep the Unna boot on for a week without any pain or changes with the Unna boot, she tolerated it very well. She comes in today also complaining of a wound on her left breast. She noticed just recently. She said she had been gotten some mar and broke out in a rash on her neck and thought that maybe she had scratched that somehow that area and now she has open wound on the left breast. She want to let us know about that as well. No fevers or chills. She was put on Keflex for the wound culture that had shown penicillin sensitive organisms and she is almost out of it. She has no other particular complaints. No fevers or chills. Her vitals are stable. Temperature is 98.4, pulse is 80, respirations 18, blood pressure is 122/80. The staff did note that when the Unna boot was removed that definitely the wound margins are bigger and there was an odor present. The length is measuring longer at 2.9 x 2 x 0.4. The surrounding tissue is not tender. It is still very thickened fibrotic as before. There was fibrin and slough noted on today's examination. She also has a wound on her left breast, it is a partial thickness. Wound that is open at 0.9 x 1 x 0.1. It looks fairly clean. There is no sign of infection present. The area of the left leg was debrided, fibrin, slough and subcutaneous tissue was debrided. There was moderate amount of bleeding, controlled with pressure. The patient tolerated the debridement well. Post-debridement culture was obtained again today. The post-debridement measurements are 2.9 x 1.9 x 0.3. ASSESSMENT AND PLAN: Venous ulceration. There may be increased level of bioburden at this point as the margins are slightly bigger and despite being on the antibiotics. I would like to add doxycycline to her regimen, repeat culture was taken. I would like to hold off on the Unna boot for now in use. We will try going with TheraHoney and dressing that can be changed every other day for now of Kerlix and Coban can be used for compression. In the meantime, we will hopefully go back to compression early next week. We will have her come back on Wednesday to reevaluate the wound and also we continue TheraHoney for the breast wound as well. Followup is early next Wednesday. The patient does not appear acutely septic or there is no acute cellulitis either noted. [place], [place] PROGRESS NOTE NAME: GEMINI SALGADO UNIT #: [id number] ROOM: DOCTOR: HARI PAZ M.D. BIRTHDATE: [birth year] HARI PAZ MD CM:PNTRANS [id number] HARI PAZ M.D. 04/16/17 0207 interface
== END | disposition home or self-care (01) ==
LOC: WOUNDCARE 00:24
DX: I87.2 Venous insufficiency (chronic) (peripheral) (principal); L97.812 Non-pressure chronic ulcer of other part of right lower leg with fat layer exposed; S20.112 Abrasion of breast, left breast; X58.XXXD Exposure to other specified factors, subsequent encounter

== ENCOUNTER → 2017-04-20 | Outpatient (CLI) | payer OTHER ==
--- NOTE | ~2017-04-20 | PR ---
[place], [place] PROGRESS NOTE NAME: GEMINI SALGADO [facility] #: [id number] UNIT #: [id number] ROOM: DOCTOR: JACKSON HuntleyHARI BIRTHDATE: [birth year] DOS: 04/20/2017 CHIEF COMPLAINT: Chronic ulceration of the right leg as well as an abrasion on the left breast. HISTORY OF PRESENT ILLNESS: A 51-year-old female with a history of recurrent venous ulceration of the right leg that had improved greatly in the past with compression therapy; however, the patient was asked to follow up. She presented just 2 weeks ago with recurrence of the wound. The wound had not actually never really quite healed and the wound was treated once again with compression therapy; however, last week when she came for compression wrap change, it was noted to have a foul odor present and increasing wound margins. Due to this, the Unna boot was held off for a couple of days and she comes in for her followup. Doxycycline was tried empirically as well. Wound culture was obtained last week, which grew beta-hemolytic strep sensitive to Levaquin, penicillin, and cefotaxime. The patient was also tried on TheraHoney. In any case, she comes in today without any specific complaints. She says her leg feels good. There is no pain, fevers or chills. There is still a fair amount of drainage and she does not really notice the odor like she did before. Also, the wound on her breast started out as an abrasion and is getting better as well. OBJECTIVE: VITAL SIGNS: Stable. Temperature is 98.1, pulse of 80, respirations 18, blood pressure is 90/56. WOUND EXAMINATION: The wound on her right lower leg is measuring 2.8 x 1.7 x 0.2. It definitely looks smaller in width than it did last week. There is still a little bit of chronic induration and erythema around the wound, but overall it looks stable. It does not appear acutely cellulitic. The wound on her breast is measuring smaller as well at 0.8 x 0.6 x 0.1 and it looks clean. A debridement was done of the right lower leg wound. This was an excisional debridement. Tissue removed was fibrin, slough and subcutaneous tissue. There was a moderate amount of bleeding that was controlled with pressure. ASSESSMENT AND PLAN: Chronic venous ulceration of the right lower extremity. The wound appears stable for a compression wrap at this point, so we will go ahead and restart the Unna boot. We will continue with TheraHoney. We will add Maxorb for absorption and I would also add Levaquin as the culture was positive for group B hemolytic strep light growth. We will add that to the doxycycline. Followup is in 2-3 days for nursing visit for wrap change and then a followup wound care clinic appointment next week. We will continue with TheraHoney for the left breast abrasion, the wound was clean and no debridement was done today of this area. [place], [place] PROGRESS NOTE NAME: GEMINI SALGADO UNIT #: [id number] ROOM: DOCTOR: HARI PAZ M.D. BIRTHDATE: [birth year] HARI PAZ MD CM:GUY [id number] HARI PAZ M.D. 04/20/17 1735 interface
== END | disposition home or self-care (01) ==
LOC: WOUNDCARE 03:14
DX: I87.2 Venous insufficiency (chronic) (peripheral) (principal); L97.812 Non-pressure chronic ulcer of other part of right lower leg with fat layer exposed; S20.112 Abrasion of breast, left breast; X58.XXXD Exposure to other specified factors, subsequent encounter

== ENCOUNTER → 2017-04-22 | Outpatient (CLI) | payer OTHER | END | disposition home or self-care (01) | LOC: WOUNDCARE 02:37 | DX: I87.2 Venous insufficiency (chronic) (peripheral) (principal); L97.812 Non-pressure chronic ulcer of other part of right lower leg with fat layer exposed ==

== ENCOUNTER → 2017-04-26 | Outpatient (CLI) | payer OTHER ==
--- NOTE | ~2017-04-26 | PR ---
[place], [place] PROGRESS NOTE NAME: GEMINI SALGADO [facility] #: [id number] UNIT #: [id number] ROOM: DOCTOR: JACKSON HuntleyHARI BIRTHDATE: [birth year] DOS: 04/26/2017 CHIEF COMPLAINT: Followup of venous leg ulcer and breast abscess. HISTORY OF PRESENT ILLNESS: This 51-year-old female with recurrent venous ulceration that is chronic that has definitely improved in the past with compression therapy, comes back starting at the end of March. The wound was quite open at that time. Last week, we restarted the Unna boot and TheraHoney as it was noted to have a fair amount of necrotic tissue present. She is on antibiotics for group Streptococcus bacteria growing in the cultures. She is almost done with those antibiotics. She said overall, she has no pain. She did notice some bleeding with strike through outside of the Unna boot wraps, but no pain, fevers or chills. The left breast abscesses scabbed over and is not draining. OBJECTIVE: VITAL SIGNS: Stable. Temperature 98.1, pulse of 60, respirations 18, blood pressure is 100/68. SKIN: The wound is measuring 2.7 x 1.7 x 0.2. There is a large amount of fibrin slough present, more so than last time. The summer-wound looks improved, this definitely not as red and the summer-wound edges are not as fibrotic as before, debridement was done, this was a subcutaneous debridement. Tissue removed was fibrin, slough and subcutaneous tissue. There was minimal to moderate bleeding controlled with pressure. Tissue removed with a curette. The patient tolerated the debridement well. The left breast wound appears healed at 0.1 x 0.1 x 0.1. ASSESSMENT AND PLAN: Venous ulceration due to the presence of continued necrotic tissue. I would like to hold off on the Unna boot hopefully for one more week and uses TheraHoney daily to try to clean it up better and then once this was cleaned up and go back to compression therapy. Also, I think she would be a good candidate for EpiFix graft is available in the near future. The breast abscessed wound is healed. She can keep the area open and just use Aquaphor for moisturizer. [place], [place] PROGRESS NOTE NAME: GEMINI SALGADO UNIT #: [id number] ROOM: DOCTOR: HARI PAZ M.D. BIRTHDATE: [birth year] HARI PAZ MD CM:GUY [id number] HARI PAZ M.D. 04/27/17 0503 interface
== END | disposition home or self-care (01) ==
LOC: WOUNDCARE 01:51
DX: I87.2 Venous insufficiency (chronic) (peripheral) (principal); L97.812 Non-pressure chronic ulcer of other part of right lower leg with fat layer exposed; S20.112 Abrasion of breast, left breast; X58.XXXD Exposure to other specified factors, subsequent encounter

== ENCOUNTER → 2017-05-05 | Outpatient (CLI) | payer OTHER | END | disposition home or self-care (01) | LOC: WOUNDCARE 02:00 | DX: I87.331 Chronic venous hypertension (idiopathic) with ulcer and inflammation of right lower extremity (principal); L97.812 Non-pressure chronic ulcer of other part of right lower leg with fat layer exposed; F17.210 Nicotine dependence, cigarettes, uncomplicated; Z72.89 Other problems related to lifestyle ==

== ENCOUNTER → 2017-05-19 | Outpatient (CLI) | payer OTHER | LOC: WOUNDCARE 01:12 | DX: I87.331 Chronic venous hypertension (idiopathic) with ulcer and inflammation of right lower extremity (principal); L97.812 Non-pressure chronic ulcer of other part of right lower leg with fat layer exposed; I10 Essential (primary) hypertension; F17.210 Nicotine dependence, cigarettes, uncomplicated; Z72.89 Other problems related to lifestyle ==

== ENCOUNTER → 2017-05-26 | Outpatient (CLI) | payer OTHER | LOC: WOUNDCARE 03:58 | DX: I87.331 Chronic venous hypertension (idiopathic) with ulcer and inflammation of right lower extremity (principal); L97.812 Non-pressure chronic ulcer of other part of right lower leg with fat layer exposed; F17.210 Nicotine dependence, cigarettes, uncomplicated; Z72.89 Other problems related to lifestyle ==

== ENCOUNTER → 2017-06-02 | Outpatient (CLI) | payer OTHER | END | disposition home or self-care (01) | LOC: WOUNDCARE 01:08 | DX: I87.331 Chronic venous hypertension (idiopathic) with ulcer and inflammation of right lower extremity (principal); L97.812 Non-pressure chronic ulcer of other part of right lower leg with fat layer exposed; F17.210 Nicotine dependence, cigarettes, uncomplicated; Z72.89 Other problems related to lifestyle ==

== ENCOUNTER → 2017-06-09 | Outpatient (CLI) | payer OTHER | END | disposition home or self-care (01) | LOC: WOUNDCARE 04:36 | DX: L97.811 Non-pressure chronic ulcer of other part of right lower leg limited to breakdown of skin (principal); I10 Essential (primary) hypertension; F17.200 Nicotine dependence, unspecified, uncomplicated; Z72.89 Other problems related to lifestyle ==

== ENCOUNTER → 2017-06-16 | Outpatient (CLI) | payer OTHER | END | disposition home or self-care (01) | LOC: WOUNDCARE 03:28 | DX: I87.331 Chronic venous hypertension (idiopathic) with ulcer and inflammation of right lower extremity (principal); L97.212 Non-pressure chronic ulcer of right calf with fat layer exposed; F17.210 Nicotine dependence, cigarettes, uncomplicated; Z72.89 Other problems related to lifestyle ==

== ENCOUNTER → 2017-06-23 | Outpatient (CLI) | payer OTHER | END | disposition home or self-care (01) | LOC: WOUNDCARE 04:26 | DX: I87.331 Chronic venous hypertension (idiopathic) with ulcer and inflammation of right lower extremity (principal); L97.812 Non-pressure chronic ulcer of other part of right lower leg with fat layer exposed; F17.210 Nicotine dependence, cigarettes, uncomplicated; Z72.89 Other problems related to lifestyle ==

== ENCOUNTER → 2017-06-30 | Outpatient (CLI) | payer OTHER | END | disposition home or self-care (01) | LOC: WOUNDCARE 01:03 | DX: I87.331 Chronic venous hypertension (idiopathic) with ulcer and inflammation of right lower extremity (principal); L97.812 Non-pressure chronic ulcer of other part of right lower leg with fat layer exposed; F17.210 Nicotine dependence, cigarettes, uncomplicated; Z72.89 Other problems related to lifestyle ==

== ENCOUNTER → 2017-07-07 | Outpatient (CLI) | payer OTHER | LOC: WOUNDCARE 02:18 | DX: I87.331 Chronic venous hypertension (idiopathic) with ulcer and inflammation of right lower extremity (principal); L97.812 Non-pressure chronic ulcer of other part of right lower leg with fat layer exposed; F17.210 Nicotine dependence, cigarettes, uncomplicated; Z72.89 Other problems related to lifestyle ==

== ENCOUNTER 2021-02-21 09:37 | Emergency (ER) | payer OTHER ==
[~2021-02-21] VITALS: Ht 182.8 cm; Wt 12.2 kg
[~2021-02-21 09:37] MED LIST changes: +ASPIR LOW81 MG PO; +ZESTORETIC 10-1 EACH PO
[2021-02-21 09:42] VITALS: BP 141/92
[2021-02-21 10:39] LABS: BASO # 0.1 10*3/uL (0.0-0.1); BASO % 0.7 % (0.0-1.0); EOS # 0.2 10*3/uL (0.0-0.4); EOS % 1.5 % (1.0-4.0); HEMATOCRIT 44.7 % (37.0-47.0); LYMPH # 3.9 10*3/uL (1.3-4.4); LYMPH % 37.6 % (27.0-41.0); MEAN PLATELET VOLUME 9.2 fl (9.6-12.3); MONO # 0.6 10*3/uL (0.1-1.0); MONO % 5.3 % (3.0-9.0); NEUT # 5.7 10*3/uL (2.3-7.9); NEUT % 54.1 % (47.0-73.0); PLATELET COUNT AUTOMATED 285 10*3/uL (130-400); RED BLOOD COUNT 4.61 10*6/uL (4.10-5.10); RED CELL DISTRI WIDTH 14.3 % (0-14.5); WHITE BLOOD COUNT 10.4 10*3/uL (4.8-10.8)
[2021-02-21 10:45] LABS: ALBUMIN 3.9 gm/dl (3.1-4.5); BUN 12 mg/dl (7-24); CHLORIDE 107 mmol/L (98-107); LIPASE 151 U/L (73-393); POTASSIUM 3.8 mmol/L (3.5-5.1); SGPT/ALT 17 U/L (12-78); SODIUM 134 mmol/L (136-145)
[2021-02-21 10:52] LABS: ACETAMINOPHEN (TYLENOL) < 5.0 ug/ml (10-30); ALKALINE PHOSPHATASE 69 U/L (45-117); SGOT/AST 12 IU/L (3-35); TOTAL PROTEIN 9.2 gm/dL (6.4-8.2)
[2021-02-21 11:11] LABS: BILIRUBIN Negative (Negative); BLOOD Negative (Negative); CLARITY Clear (Clear); COLOR Yellow (Yellow); GLUCOSE Negative (Negative); KETONE Negative (Negative); LEUKO ESTERASE Trace (Negative); NITRITE Negative (Negative); SPECIFIC GRAVITY <= 1.005 (1.001-1.030); UROBILINOGEN 0.2 E.U./dl (0.0-1.0)
[2021-02-21 11:20] LABS: BACTERIA TRACE; RBC 0-2 rbc/hpf (0-2)
== END 2021-02-21 20:29 | disposition home or self-care (01) ==
LOC: ED 09:37
PROVIDERS: Emergency Medicine
DX: F10.920 Alcohol use, unspecified with intoxication, uncomplicated (principal); Z90.89 Acquired absence of other organs; Y90.7 Blood alcohol level of 200-239 mg/100 ml